=== PATIENT | female | born 1960 | race Caucasian/White ===

== ENCOUNTER 2017-01-25 10:37 | Outpatient (CLI) | payer BC ==
--- NOTE | 2017-01-25 12:23 | MMO ---
BILATERAL MAMMOGRAMS: DATE: 01/25/17 HISTORY: Screening mammography. COMPARISON: 11/03/12 and 11/28/15. FINDINGS: Scattered fibroglandular densities are again demonstrated. Metallic marker in the left breast indica audra region of prior biopsy. Axillary lymph nodes within each breast are stable. There is no new juan carlos nant mass or suspicious calcifications. The study was evaluated with the assistance of computer-aided detection. IMPRESSION: BIRADS 2: Benign Finding(s) Suggest routine follow-up. POS: [facility]
== END 2017-01-25 10:38 | disposition home or self-care (01) ==
LOC: MAMMO 10:37
PROVIDERS: ATTEND Physician Assistant
DX: Z12.31 Encounter for screening mammogram for malignant neoplasm of breast (principal)
CPT/HCPCS: 77067; G0202

== ENCOUNTER 2018-04-01 11:53 | Outpatient (CLI) | payer BC | END 2018-04-01 11:54 | disposition home or self-care (01) | LOC: BICMAMMO 11:53 | PROVIDERS: ATTEND Obstetrics & Gynecology | DX: Z12.31 Encounter for screening mammogram for malignant neoplasm of breast (principal); Z80.3 Family history of malignant neoplasm of breast | CPT/HCPCS: 77063; 77067 ==

== ENCOUNTER 2019-04-16 12:52 | Outpatient (CLI) | payer BC ==
--- NOTE | 2019-04-16 13:45 | MMO ---
Bilateral MAMMO Bilat Screen [facility]. CLINICAL HISTORY: Patient is 59 years old and is seen for screening. The patient has the following family history of breast cancer: mother, at age 50. The patient has no personal history of cancer. The patient has a history of right Excisional Biopsy - benign and left Stereotatic Biopsy - benign. VIEWS: The views performed were: bilateral craniocaudal with tomosynthesis and bilateral mediolateral oblique with tomosynthesis. FILMS COMPARED: The present examination has been compared to prior imaging studies performed at [facility] on 11/25/2014, 11/28/2015, 01/25/2017 and 04/01/2018. This study has been interpreted with the assistance of computer-aided detection. MAMMOGRAM FINDINGS: The breasts are heterogeneously dense, which could obscure a lesion on mammography. Finding 1: There is a stable biopsy clip seen in the left breast. Finding 2: There are stable benign appearing calcifications seen in both breasts. There are no suspicious masses, suspicious calcifications, or new areas of architectural distortion. IMPRESSION: THERE IS NO MAMMOGRAPHIC EVIDENCE OF MALIGNANCY. A ROUTINE FOLLOW-UP MAMMOGRAM IN 1 YEAR IS RECOMMENDED. THE RESULTS OF THIS EXAM WERE SENT TO THE PATIENT. ACR BI-RADS Category 2 - Benign finding MAMMOGRAPHY NOTE: 1. A negative mammogram report should not delay a biopsy if a dominant of clinically suspicious mass is present. 2. Approximately 10% to 15% of breast cancers are not detected by mammography. 3. Adenosis and dense breasts may obscure an underlying neoplasm. Reported by: DAYANA CRUZ MD Electonically Signed: [id number]
== END 2019-04-16 12:53 | disposition home or self-care (01) ==
LOC: BICMAMMO 12:52
PROVIDERS: ATTEND Obstetrics & Gynecology
DX: Z12.31 Encounter for screening mammogram for malignant neoplasm of breast (principal); Z91.89 Other specified personal risk factors, not elsewhere classified; Z80.3 Family history of malignant neoplasm of breast
CPT/HCPCS: 77063; 77067

== ENCOUNTER 2020-04-20 13:59 | Outpatient (CLI) | payer OTHER ==
--- NOTE | 2020-04-20 15:00 | MMO ---
Bilateral MAMMO Bilat Screen [facility]. CLINICAL HISTORY: Patient is 60 years old and is seen for screening. The patient has the following family history of breast cancer: mother, at age 50. The patient has no personal history of cancer. The patient has a history of right Excisional Biopsy - benign and left Stereotatic Biopsy - benign. VIEWS: The views performed were: bilateral craniocaudal with tomosynthesis and bilateral mediolateral oblique with tomosynthesis. FILMS COMPARED: The present examination has been compared to prior imaging studies performed at [facility] on 11/28/2015, 01/25/2017, 04/01/2018 and 04/16/2019. This study has been interpreted with the assistance of computer-aided detection. MAMMOGRAM FINDINGS: The breasts are heterogeneously dense, which could obscure a lesion on mammography. Finding 1: There are stable benign appearing calcifications seen in both breasts. Finding 2: There are stable benign appearing densities seen in both breasts. There are no suspicious masses, suspicious calcifications, or new areas of architectural distortion. IMPRESSION: THERE IS NO MAMMOGRAPHIC EVIDENCE OF MALIGNANCY. A ROUTINE FOLLOW-UP MAMMOGRAM IN 1 YEAR IS RECOMMENDED. THE RESULTS OF THIS EXAM WERE SENT TO THE PATIENT. ACR BI-RADS Category 2 - Benign finding MAMMOGRAPHY NOTE: 1. A negative mammogram report should not delay a biopsy if a dominant of clinically suspicious mass is present. 2. Approximately 10% to 15% of breast cancers are not detected by mammography. 3. Adenosis and dense breasts may obscure an underlying neoplasm. Reported by: GARDENIA BELLE MD Electonically Signed: [id number]
== END 2020-04-20 14:00 | disposition home or self-care (01) ==
LOC: BICMAMMO 13:59
PROVIDERS: ATTEND Physician Assistant
DX: Z12.31 Encounter for screening mammogram for malignant neoplasm of breast (principal); Z91.89 Other specified personal risk factors, not elsewhere classified; Z80.3 Family history of malignant neoplasm of breast
CPT/HCPCS: 77063; 77067

== ENCOUNTER 2021-05-12 10:08 | Outpatient (CLI) | payer BC | END 2021-05-12 10:09 | disposition home or self-care (01) | LOC: BICMAMMO 10:08 | PROVIDERS: ATTEND Obstetrics & Gynecology | DX: Z12.31 Encounter for screening mammogram for malignant neoplasm of breast (principal); Z80.3 Family history of malignant neoplasm of breast; Z91.89 Other specified personal risk factors, not elsewhere classified | CPT/HCPCS: 77063; 77067 ==

== ENCOUNTER 2022-05-24 14:26 | Outpatient (CLI) | payer BC | END 2022-05-24 14:27 | disposition home or self-care (01) | LOC: BICMAMMO 14:26 | PROVIDERS: ATTEND Obstetrics & Gynecology | DX: Z12.31 Encounter for screening mammogram for malignant neoplasm of breast (principal); Z91.89 Other specified personal risk factors, not elsewhere classified; Z80.3 Family history of malignant neoplasm of breast | CPT/HCPCS: 77063; 77067 ==

== ENCOUNTER 2022-11-26 04:09 | Inpatient (IN) | payer BC ==
[2022-11-26] MEDS ORDERED: Mag-Al 1200 mg/1200 mg/30 ML UDCUP ONE (04:39)
[2022-11-26 04:58] LABS: #Eosinphils 0.1 thou/uL (0.0-0.7); #Monocytes 0.6 thou/uL (0.11-0.59); #Neutrophils 9.3 thou/uL (1.40-6.50); %Basophils 0.2 % (0.0-1.0); %Eosinophils 0.5 % (0.0-10.0); %Lymphocytes 10.5 % (21.0-51.0); %Neutrophils 83.5 % (42.0-75.0); Hematocrit 42.6 % (36.0-47.0); Hemoglobin 14.8 g/dL (12.0-16.0); Mean Corpuscular HGB CONC 34.7 g/dL (32.0-36.0); Mean Corpuscular Volume 89.3 fl (78.0-98.0); Mean Platelet Volume 10.3 fL (7.4-10.4); Platelet Count 273 10x3/uL (130-400); RBC Distribution Width 12.6 % (11.5-14.5); Red Blood Cell (RBC) Count 4.77 mill/uL (4.20-5.40); White Blood Cell (WBC) Count 11.1 10x3/uL (4.8-10.8)
[2022-11-26] MEDS ORDERED: Ondansetron PF 4 MG/2 ML Vial ONE (05:15)
[2022-11-26] MEDS ORDERED: Ketorolac Tromethamine 30 MG/ML VIAL ONE (05:15)
[2022-11-26] MEDS ORDERED: Piperacillin/Tazobactam 3.375 GM VIAL ONE (05:15)
[2022-11-26 05:23] LABS: Bacteria/HPF 1+ HPF (None Seen); Bilirubin Negative (Negative); Blood, Urine Trace (Negative); CAUTI Indications for Culture Pelvic or flank pain; Clarity Clear (Clear); Glucose, Urine (Dipstick) Normal (Negative); Ketone, Urine 10 mg/dL (Negative); Leukocyte 500 Leu/uL (Negative); Nitrite Negative (Negative); Protein, Urine (Dipstick) 10 mg/dL (Neg-Trace); Renal Epithelial 0-3 HPF (None Seen); Specific Gravity, Urine 1.024 (1.002-1.036); WBC/HPF Greater than 50 HPF (0-3)
[2022-11-26 05:23] LABS: ALT (SGPT) 815 U/L (8-55); AST (SGOT) 1875 U/L (5-34); Albumin 4.4 g/dL (3.4-4.8); Alkaline Phosphatase 132 U/L (40-110); Anion Gap 16 mmol/L (10-20); BUN (Urea Nitrogen) 17 mg/dL (9.8-20.1); Bilirubin, Total 2.1 mg/dL (0.2-1.2); Calc. Creatinine Clearance 0 mL/min (70-130); Calcium 9.7 mg/dL (7.8-10.44); Carbon Dioxide 27 mmol/L (23-31); Chloride 98 mmol/L (98-107); Estimated GFR 89; Globulin 3.2 g/dL (2.4-3.5); Glucose 169 mg/dL (80-115); Lipase 46 U/L (8-78); Potassium 2.8 mmol/L (3.5-5.1); Protein, Total 7.6 g/dL (5.8-8.1); Sodium 138 mmol/L (136-145)
[2022-11-26 05:24] LABS: Urine Culture Reflex Yes Yes
[2022-11-26] MEDS ORDERED: cefTRIAXone (ROCEPHIN) 1 GM VIAL ONE (05:26)
[2022-11-26] MEDS ORDERED: fentaNYL PF 100 MCG/2 ML SYRINGE ONE (06:37)
[2022-11-26] MEDS ORDERED: Bupivacaine PF 0.5% 30 ML VIAL ONE (06:46)
[2022-11-26] MEDS ORDERED: EPINEPHrine 1 MG/10 ML Abboject SYRINGE ONE (06:46)
[2022-11-26] MEDS ORDERED: LevoFLOXacin 500 mg/D5W 100 ML BAG ONE (06:51)
[2022-11-26] MEDS ORDERED: Iopamidol 10 ML FS ONE ×2 (06:58→08:38)
[2022-11-26] MEDS ORDERED: Glucagon 1 MG/ML KIT ONE (08:01)
[2022-11-26] MEDS ORDERED: Lidocaine 1% PF 5 ML VIAL ONE (08:06)
[2022-11-26] MEDS ORDERED: Succinylcholine 200 MG/10 ml SYRINGE FS ONE (08:06)
[2022-11-26] MEDS ORDERED: Rocuronium Bromide 10 MG/ML (10ML VIAL) ONE (08:06)
[2022-11-26] MEDS ORDERED: Dexamethasone 20 MG/5 ML VIAL ONE (08:06)
[2022-11-26] MEDS ORDERED: PROPOFOL 200 MG/20 ML VIAL ONE (08:06)
[2022-11-26] MEDS ORDERED: Indomethacin 50 MG SUPP ONE (09:16)
[2022-11-26] MEDS ORDERED: Iopamidol 30 ML FS ONE (09:17)
[2022-11-26] MEDS ORDERED: Mag-Al 1200 mg/1200 mg/30 ML UDCUP PO PRN (09:19)
[2022-11-26] MEDS ORDERED: Promethazine HCl 25 MG/ML VIAL IM PRN (09:19)
[2022-11-26] MEDS ORDERED: hydrALAZINE 20 MG/ML VIAL SLOW IVP PRN (09:19)
[2022-11-26] MEDS ORDERED: Morphine 4 MG/ML VIAL SLOW IVP PRN (09:19)
[2022-11-26] MEDS ORDERED: Calcium Carbonate 500 MG ChewTAB PO PRN (09:19)
[2022-11-26] MEDS ORDERED: Ondansetron PF 4 MG/2 ML Vial IVP PRN (09:19)
[2022-11-26] MEDS ORDERED: Ipratropium/Albuterol 3 ML NEB NEB PRN (09:19)
[2022-11-26] MEDS ORDERED: Acetaminophen 325 MG TAB PO PRN (09:19)
[2022-11-26] MEDS ORDERED: Morphine 2 MG/ML VIAL SLOW IVP PRN (09:19)
[2022-11-26] MEDS ORDERED: HYDROcodone/Acetaminophen 5/325 mg Tablet PO PRN ×2 (09:23)
[2022-11-26] MEDS ORDERED: Glycopyrrolate 0.2 MG/ML 5 ML SYRINGE ONE (09:59)
[2022-11-26] MEDS ORDERED: NEOSTIGMINE 3 MG/3 ML SYR 3 MG/3 ML SYRINGE ONE (09:59)
[2022-11-26 12:03] VITALS: BMI 25.3
[2022-11-26] MEDS: Ketorolac Tromethamine 30 MG/ML VIAL IVP SCH ×3 (12:25→23:31)
[2022-11-26] MEDS: D5 1/2 NS w/20 mEq KCL 1,000 ML IV SCH ×3 (12:25→20:57)
[2022-11-26] MEDS: Famotidine 20 MG TAB PO SCH (20:15)
[2022-11-27] MEDS: D5 1/2 NS w/20 mEq KCL 1,000 ML IV SCH ×2 (04:40→05:20)
[2022-11-27] MEDS: Ketorolac Tromethamine 30 MG/ML VIAL IVP SCH (05:24)
[2022-11-27 06:12] LABS: #Eosinphils 0.1 thou/uL (0.0-0.7); #Monocytes 0.5 thou/uL (0.11-0.59); #Neutrophils 6.7 thou/uL (1.40-6.50); %Basophils 0.3 % (0.0-1.0); %Lymphocytes 24.5 % (21.0-51.0); %Monocytes 5.5 % (0.0-10.0); %Neutrophils 68.4 % (42.0-75.0); Hemoglobin 12.1 g/dL (12.0-16.0); Mean Corpuscular HGB CONC 33.6 g/dL (32.0-36.0); Mean Corpuscular Hemoglobin 30.8 pg (27.0-31.0); Mean Corpuscular Volume 91.6 fl (78.0-98.0); Mean Platelet Volume 10.2 fL (7.4-10.4); Platelet Count 203 10x3/uL (130-400); Red Blood Cell (RBC) Count 3.93 mill/uL (4.20-5.40); White Blood Cell (WBC) Count 9.8 10x3/uL (4.8-10.8)
[2022-11-27 06:44] LABS: ALT (SGPT) 684 U/L (8-55); AST (SGOT) 377 U/L (5-34); Albumin 3.4 g/dL (3.4-4.8); Alkaline Phosphatase 121 U/L (40-110); Anion Gap 10 mmol/L (10-20); BUN (Urea Nitrogen) 10 mg/dL (9.8-20.1); Bilirubin, Total 0.9 mg/dL (0.2-1.2); Calc. Creatinine Clearance 86 mL/min (70-130); Calcium 7.8 mg/dL (7.8-10.44); Carbon Dioxide 25 mmol/L (23-31); Chloride 106 mmol/L (98-107); Estimated GFR 98; Globulin 2.3 g/dL (2.4-3.5); Glucose 125 mg/dL (80-115); Potassium 3.2 mmol/L (3.5-5.1); Protein, Total 5.7 g/dL (5.8-8.1); Sodium 138 mmol/L (136-145)
[2022-11-27] MEDS: Famotidine 20 MG TAB PO SCH (08:23)
[2022-11-27] MEDS ORDERED: Ibuprofen 800 MG TAB PO PRN (09:54)
[2022-11-27] MEDS ORDERED: traMADol HCl 50 MG TAB PO PRN (09:54)
[2022-11-27 09:57] VITALS: BP 99/57; TEMP 97.8
[2022-11-27] MEDS ORDERED: Potassium Chloride 20 MEQ TAB PO SCH (10:00)
[2022-11-27] MEDS ORDERED: Ibuprofen 200 MG TAB PO PRN (10:26)
== END 2022-11-27 13:37 | disposition home or self-care (01) | DRG 419 ==
LOC: ERS 04:09 → SDC 06:48 → SURG B 09:20
PROVIDERS: ADMIT Surgery; ATTEND Surgery
PROC: 0FT44ZZ Resection of Gallbladder, Percutaneous Endoscopic Approach (ICD-10-PCS; principal; 2022-11-26)
PROC: BF141ZZ Fluoroscopy of Gallbladder, Bile Ducts and Pancreatic Ducts using Low Osmolar Contrast (ICD-10-PCS; 2022-11-26)
PROC: 0FC98ZZ Extirpation of Matter from Common Bile Duct, Via Natural or Artificial Opening Endoscopic (ICD-10-PCS; 2022-11-26)
PROC: 3E033XZ Introduction of Vasopressor into Peripheral Vein, Percutaneous Approach (ICD-10-PCS; 2022-11-26)
DX: K80.62 Calculus of gallbladder and bile duct with acute cholecystitis without obstruction (principal); I10 Essential (primary) hypertension; K21.9 Gastro-esophageal reflux disease without esophagitis; Z98.890 Other specified postprocedural states; Z98.51 Tubal ligation status
CPT/HCPCS: 36415; 47532; 71045; 74330; 76705; 80053; 81001; 83605; 83690; 84484; 85025; 87086; 88304; 93005; C1889; J0171; J0696; J1100; J1611; J1650; J1885; J1956; J2405; J2543; J2704; J3480; Q9966; S0020

== ENCOUNTER 2023-07-04 09:56 | Outpatient (CLI) | payer BC | END 2023-07-04 09:57 | disposition home or self-care (01) | LOC: BICMAMMO 09:56 | PROVIDERS: ATTEND Obstetrics & Gynecology | DX: Z12.31 Encounter for screening mammogram for malignant neoplasm of breast (principal); Z80.3 Family history of malignant neoplasm of breast; Z91.89 Other specified personal risk factors, not elsewhere classified | CPT/HCPCS: 77063; 77067 ==